=== PATIENT | male | born 1970 | race Caucasian/White ===

== ENCOUNTER 2017-03-15 07:52 | Emergency (ER) | payer BC, OTHER ==
[~2017-03-15] VITALS: Ht 172.7 cm; Wt 75.0 kg
[~2017-03-15 07:52] MED LIST: BACT800T5 PO; OXYC5 PO; TAMS0.4C67 PO; TRAZ50TA4 PO; XANA1TAB6 PO
[2017-03-15 07:54] VITALS: BP 134/86; PULSE 94; RESP 12; TEMP 98; O2SAT 100
--- NOTE | 2017-03-15 08:00 | PD ---
HPI . fell yesterday Chief Complaint: Pain: Acute or Chronic Time Seen by Provider: 08:00 Travel History International Travel<30 days: No Contact w/Intl Traveler<30days: No Traveled to known affect area: No History of Present Illness HPI 46-year-old male with a long-standing history of chronic back pain who recently had MRI and had some slipped disc versus compression here with complaints of slipping yesterday while cleaning his fish tank. Patient says he fell and he hit his back. He is now complaining of pain on the right side of his lower spine. He tells me that the pain is 9.5/10 without radiation elsewhere. He denies any bowel or bladder dysfunction. He has no saddle anesthesia. PFSH Past Medical History Blood Disorders: No Anxiety: Yes Cancer: No Cardiovascular Problems: Yes High Cholesterol: Yes Chest Pain: Yes (04/08/14) Diminished Hearing: No Endocrine: No Genitourinary: Yes (INFLAMMED PROSTATE) Immune Disorder: No Kidney Stones: Yes Musculoskeletal: Yes (BACK PROBLEMS) Neurologic: No Reproductive: Yes (GROWTH ON RIGHT TESTICLE) Respiratory: No Immunizations Current: Yes Myocardial Infarction: Yes (states that he had a small NE last year) Past Surgical History Appendectomy: Yes Social History Alcohol Use: Yes (OCC) Tobacco Use: Yes (1/2 PPD) Substance Use: No Allergies-Medications (Allergen,Severity, Reaction): Coded Allergies: No Known Allergies (Verified , 03/15/17) Reported Meds & Prescriptions Reported Meds & Active Scripts Active Reported Flexeril (Cyclobenzaprine HCl) 7.5 Mg Tab 7.5 Mg PO BID Alprazolam 1 Mg Tab 1 Mg PO BID PRN Trazodone (Trazodone HCl) 50 Mg Tab 50 Mg PO HS Flomax (Tamsulosin HCl) 0.4 Mg Cap 0.4 Mg PO HS Oxycodone (Oxycodone HCl) 10 Mg Tab 10 Mg PO TID PRN Review of Systems General / Constitutional: No: Fever Eyes: No: Visual changes HENT: No: Headaches Cardiovascular: No: Chest Pain or Discomfort Respiratory: No: Shortness of Breath Gastrointestinal: No: Abdominal Pain Genitourinary: No: Dysuria Musculoskeletal: Positive: Pain (paraspinal muscles L spine right side) Skin: No Rash Neurologic: No: Weakness Psychiatric: No: Depression Endocrine: No: Polydipsia Hematologic/Lymphatic: No: Easy Bruising Physical Exam Narrative GENERAL: AAO x 3, no acute distress, Well-nourished, well-developed patient. Appears very comfortable and in no distress SKIN: Warm and dry. No visible rashes or bruising. HEAD: Normocephalic and atraumatic. EYES: No scleral icterus. No injection or drainage. ENT: No nasal drainage noted. Mucous membranes pink. Airway patent. NECK: Supple, trachea midline. No JVD. CARDIOVASCULAR: Regular rate and rhythm without murmurs, gallops, or rubs. RESPIRATORY: Breath sounds equal bilaterally. No accessory muscle use. No rhonchi or rales. GASTROINTESTINAL: Abdomen nondistended. EXTREMITIES: No cyanosis or edema. BACK: Nontender, prior surgical scar seen. Tenderness along the right paraspinal muscles of the lower L-spine NEURO: CN II-12 intact, strength lower extremities normal PSYCH: AAO x 3, normal affect. Data Data Last Documented VS Vital Signs Date Time Temp Pulse Resp B/P Pulse Ox O2 Delivery O2 Flow Rate FiO2 03/15/17 07:54 98.0 94 12 134/86 100 MDM Medical Decision Making Medical Screen Exam Complete: Yes Emergency Medical Condition: Yes Medical Record Reviewed: Yes Differential Diagnosis acute on chronic back pain, muscle strain, less likely acute fracture Narrative Course 46-year-old male here with complaints of pain on his lower right side of his back. Pain is located in the paraspinal muscles. I did an examination and the presence of my nurse Stacey and palpated the entire spine. Patient had no tenderness or drop off sign. I did this twice. He thinks he takes flexeril, but is uncertain, but says he did not take it this morning. I'll provide him with Norflex and Toradol here in the emergency department. He is requesting another MRI to see if he has hurt his back further. I advised that MRI imaging is not emergent and he needs to have this done outpatient basis. Diagnosis Primary Impression: Chronic back pain Qualified Code: M54.5 - Chronic right-sided low back pain without sciatica Patient Instructions: General Instructions Additional Instructions: Please return to emergency department if your symptoms return or worsen. Follow up with your primary care provider. Med/Other Pt SpecificInfo: No Change to Meds Disposition: 01 DISCHARGE HOME Condition: Stable Ann Marie Gay Mar 15, 2017 08:00
[2017-03-15] MEDS ORDERED: ALPR1TAB3 PO (08:04)
[2017-03-15] MEDS ORDERED: CYCL7.5T33 PO (08:04)
[2017-03-15] MEDS ORDERED: OXYC-395 PO (08:04)
[2017-03-15] MEDS ORDERED: TAMS5CAP PO (08:04)
[2017-03-15] MEDS ORDERED: TRAZ50TA12 PO (08:04)
[2017-03-15] MEDS ORDERED: KETOROLAC TROMETHAMINE 60 MG/2 ML (IM) VIAL IM ONE (08:15)
[2017-03-15] MEDS ORDERED: ORPHENADRINE INJ 60 MG/2 ML AMP IM ONE (08:15)
== END 2017-03-15 08:47 | disposition home or self-care (01) ==
LOC: NEPK 07:52
DX: M54.9 Dorsalgia, unspecified (principal); G89.29 Other chronic pain; F41.9 Anxiety disorder, unspecified; E78.00 Pure hypercholesterolemia, unspecified; I25.2 Old myocardial infarction; F17.200 Nicotine dependence, unspecified, uncomplicated; Z79.899 Other long term (current) drug therapy
CPT/HCPCS: 96372; 99284; J1885; J2360

== ENCOUNTER 2018-01-16 06:44 | Observation (INO) | payer OTHER ==
[~2018-01-16] VITALS: Ht 170.2 cm; Wt 69.5 kg
[~2018-01-16 06:44] MED LIST changes: +ALPR1TAB3 PO; -BACT800T5 PO; +CYCL7.5T33 PO; +OXYC-395 PO; -OXYC5 PO; -TAMS0.4C67 PO; +TAMS5CAP PO; +TRAZ50TA12 PO; -TRAZ50TA4 PO; -XANA1TAB6 PO
[2018-01-16] MEDS ORDERED: HYDROmorphone HCL PF 2 MG/ML VIAL ONE (07:30)
[2018-01-16] MEDS ORDERED: ACETAMINOPHEN 1000 MG/100 ML 100 ML IV ONE (07:30)
[2018-01-16] MEDS ORDERED: POVIDONE IODINE 5% (ANTISEPSIS KIT) 4 APPLICATIONS EACH NARE PRN (07:45)
[2018-01-16] MEDS ORDERED: VANCOMYCIN 1 GM/200 ML PREMIX IV SCH (07:45)
[2018-01-16] MEDS ORDERED: ceFAZolin 2 GM PREMIX 50 ML IV SCH (07:45)
[2018-01-16] MEDS ORDERED: CHLORHEXIDINE GLUCONATE 4% SOLN 120 ML BTL TOPICAL SCH (07:45)
[2018-01-16] MEDS ORDERED: METOPROLOL TARTRATE 25 MG TAB PO PRN (07:45)
[2018-01-16] MEDS ORDERED: CHLORHEXIDINE GLUCONATE 2 % 1 PACK (2 CLOTHS) TOPICAL PRN (07:45)
[2018-01-16] MEDS ORDERED: SODIUM CHLORID 0.9% 500 ML IV PRN (07:45)
[2018-01-16] MEDS ORDERED: LACTATED RINGER'S 1000 ML IV PRN (07:45)
[2018-01-16] MEDS ORDERED: KETAMINE HCL 50 MG/5 ML SYRINGE ONE (07:53)
[2018-01-16] MEDS ORDERED: PROPOFOL 500 MG/50 ML INJ 200 ML ONE (07:54)
[2018-01-16] MEDS ORDERED: ceFAZolin INJ 1,000 MG VIAL ONE (08:02)
[2018-01-16] MEDS ORDERED: GENTAMICIN SULFATE 80 MG/2 ML VIAL ONE (08:02)
[2018-01-16] MEDS ORDERED: BUPIVACAINE/EPINEPHRINE 0.5% PF 30 ML VIAL ONE (08:20)
[2018-01-16] MEDS ORDERED: Post-op Orders (for Pharmacy) XX ONE (10:30)
[2018-01-16] MEDS ORDERED: BISACODYL 10 MG SUPP RECTAL PRN (10:30)
[2018-01-16] MEDS ORDERED: oxyCODONE/ACETAMINOPHEN 10 MG/325 MG TAB PO PRN (10:30)
[2018-01-16] MEDS ORDERED: ONDANSETRON ODT 4 MG TAB PO PRN (10:45)
[2018-01-16] MEDS ORDERED: ceFAZolin INJ 1,000 MG VIAL IV ONE ×2 (10:53→12:00)
[2018-01-16] MEDS ORDERED: PHENYLEPH/NS 1000 MCG/10 ML SYR IV ONE (12:00)
[2018-01-16] MEDS ORDERED: PROPOFOL 200 MG/20 ML AMP IV ONE (12:00)
[2018-01-16] MEDS ORDERED: PHENYLEPHRINE HCL 10 MG/ML VIAL IV ONE (12:00)
[2018-01-16] MEDS ORDERED: ROCURONIUM INJ 50 MG/5 ML SYRINGE IV PUSH ONE (12:00)
[2018-01-16] MEDS ORDERED: NORMOSOL R INJ 2,000 ML IV ONE (12:00)
[2018-01-16] MEDS ORDERED: ONDANSETRON HCL 4 MG/2 ML VIAL IV ONE (12:00)
[2018-01-16] MEDS ORDERED: LIDOCAINE HCL 1% PF 5 ML SYRINGE OTHER ONE (12:00)
[2018-01-16] MEDS ORDERED: LACTATED RINGER'S 1000 ML INJ 1,000 ML IV ONE (12:00)
[2018-01-16] MEDS ORDERED: SUCCINYLCHOLINE CHLORIDE 100 MG/5 ML SYRINGE IV PUSH ONE (12:00)
[2018-01-16] MEDS ORDERED: DEXAMETHASONE SOD PHOS 4 MG/ML VIAL IV ONE (12:00)
--- NOTE | 2018-01-16 12:10 | PD.OP ---
cc: Cyrus Cm MD; Chester Cm MD Operative Report Date of Surgery: Jan 16, 2018 Preoperative Diagnosis: Osteophyte disc complex/herniated nucleus pulposus C5-6, C6-7. Cervical spinal stenosis. Right greater than left cervical radiculopathy Postoperative Diagnosis: Same Procedure: Anterior cervical discectomy decompression with bilateral foraminotomies, C5-6. Anterior cervical discectomy decompression and bilateral foraminotomies, C6-7. Left anterior iliac crest bone graft Anesthesia: General Surgeon: Chester Cm Geriatric Physician(s): YARELI Gibbs Operation and Findings: EBL: 50 cc INDICATIONS: This patient is a 47-year-old male with significant neck and arm pain. Investigative studies shows evidence of osteophyte disc complexes with a soft disc herniation at C5-6 and C6-7. At C3-4 there is some evidence of a central osteophyte disc complex. The patient presents with right greater than left arm pain with weakness. Investigative studies are consistent with the same. He now presents for surgical treatment. NOTE: Patricia Gibbs PA-C was present for the entire surgical procedure as my first aid attendant. In my medical opinion her skill and care was necessary for proper management of this patient PROCEDURE: The patient was brought to the operating room and anesthetized in the supine position. This patient was positioned supine on the radiolucent table. All pressure points were protected in the anterior cervical spine and iliac crest was scrubbed with alcohol followed by Hibiclens followed by ChloraPrep. A timeout was done and antibiotics were given within 1 hour time window. Lateral radiographic images were used identifying the proper level. A right anterior incision was made in line with skin creases. The platysma was opened in line with the incision. Deep dissection continued in the interval between the carotid sheath and the esophagus. The longus-coli muscles were lifted on both sides and retractors were positioned allowing good exposure. Lateral radiographic images were used to identify the proper level. [place] style interosseous pins were placed at C5 and C6 allowing exposure to that level. The microscope was rolled into the field. A total discectomy was accomplished and posterior osteophytes were removed. The posterior longitudinal ligament and annulus was taken down. Bilateral foraminotomies were accomplished. The endplates were squared up anticipating later bone grafting. A blunt probe could be placed out each foramen without evidence of nerve root compromise. The C5 pin was placed down to C7. An anterior exposure was accomplished. We performed a total discectomy with excision of the posterior annulus and posterior longitudinal ligament. Bilateral foraminotomies were accomplished. Osteophytes were removed. The endplates were squared up anticipating later bone grafting. A blunt probe could be placed out each foramen without evidence of nerve root compromise. The left iliac crest was approached. A small stab incision was made allowing percutaneous access to the anterior iliac crest. Multiple cores of cancellous bone were harvested and taken to the back table to be used for later bone grafting. The wound was irrigated anesthetized and closed with 4-0 Vicryl followed by Dermabond. The case was turned over to Dr. Cyrus Cm for fusion and instrumentation per his dictation. FINDINGS: There was evidence of soft disc herniation extending into the foramen both levels at C5-6 and C6-7 with evidence of a combination of osteophyte and soft disc component centrally at both levels. There was a moderate to high- grade central stenosis with significant foraminal stenosis. Final decompression was felt to be very satisfactory. There was no complication that was identified NOTE: This surgery was performed in 2 parts. The first part was the neurosurgical decompression performed under the variable power stereo microscope by the undersigned in addition to the bone graft. The second portion of the surgery will be performed by the orthopedic spine component by co -surgeon, Dr. Cyrus Cm for the anterior fusion with interbody cage and anterior plate. The skill of 2 surgeons was necessary to perform distinct separate procedural services as dictated above and dictated in the following operative note by Dr. Cyrus Cm. Chester Cm MD Jan 16, 2018 12:10
[2018-01-16] MEDS ORDERED: OXYC1TAB36 PO (12:15)
[2018-01-16] MEDS ORDERED: NALOXONE HCL 0.4 MG/ML AMP ONE (13:06)
[2018-01-16] MEDS ORDERED: MIDAZOLAM HCL 2 MG/2 ML VIAL ONE (13:33)
[2018-01-16] MEDS ORDERED: CYCLOBENZAPRINE HCL 10 MG TAB PO PRN (13:45)
--- NOTE | 2018-01-16 13:50 | MP ---
cc: Cyrus Cm MD, Gregory DATE OF OPERATION: PREOPERATIVE DIAGNOSES: C5-C6, C6-C7 herniated nucleus pulposus, osteophyte disk complex, spinal cord compression. POSTOPERATIVE DIAGNOSES: C5-C6, C6-C7 herniated nucleus pulposus, osteophyte disk complex, spinal cord compression. PROCEDURE PERFORMED: C5-C6 and C6-C7 interbody fusion, C6-C7 SpineNet ACC anterior cervical cage, C5-C7 anterior spinal instrumentation of SpineNet rhausler. SURGEON: Cyrus Cm MD CREDIT COLLECTIONS SPECIALIST: Staff. ESTIMATED BLOOD LOSS: See chart. COMPLICATIONS: None. SPECIMEN: None. DRAIN: One. PROCEDURE: The patient was brought to the operating room and had satisfactory anesthesia by the Department of Anesthesia. Dr. Chester Cm performed right anterior cervical spine exposure. He provided anterior cervical discectomy and decompression, C5-C6, C6-C7 using operative microscope and left anterior crest bone grafting. I was not present for his portion of the procedure. The endplates at C6-C7 and C5-C6 were prepared for fusion. Hyalin cartilage endplate was removed. A 6, 10 x 12 ACC cage placed in the interspace at C6-C7. Anterior iliac crest bone grafting under fluoroscopic guidance for interbody fusion. At C5-6 patient had a 7, 10 x 12 ACC cage placed in interspace. Anterior iliac crest bone graft under fluoroscopic guidance for interbody fusion. Anterior osteophytes were removed using multiple different types of rongeurs, curettes, and burs. A 49 mm SpineNet rhausler plate was contoured for appropriate cervical lordosis. Two pins were used to keep the plate in appropriate position, which was confirmed by AP and lateral fluoroscopy. Two screws were used in the vertebral body of C5, C6, and C7. Each of the screws were 14 mm length, 4.0 mm in outer diameter fixed angle screws. Each were drilled. Each screw had appropriately locked to the plate. The wound was irrigated copiously. The wound itself was dry. The wound was closed over a 10-[place] Radu drain. The wound was closed in a routine manner using multiple interrupted 3-0 Vicryl suture, skin was approximated with running subcuticular 4-0 Vicryl suture. Dermabond was placed on the skin. Sterile dressing applied. The patient was placed in a [place] cervical orthosis. The patient tolerated the procedure well and arrived in the recovery room in stable and satisfactory condition. Cyrus Cm MD AWG/TL , 01:08 PM , 01:49 PM
[2018-01-16] MEDS: LACTATED RINGER'S 1000 ML INJ 1,000 ML IV SCH ×2 (14:00→19:36)
[2018-01-16] MEDS ORDERED: DO NOT ADM ANY ANTICOAGULANT DRUGS PRN (14:00)
[2018-01-16] MEDS ORDERED: *morphine SULFATE 4 MG/ML PERIprocedure ONLY ONE (14:33)
[2018-01-16] MEDS ORDERED: *MEPERIDINE 25 MG INJ VIAL PERIprocedural Use ONLY ONE (15:07)
[2018-01-16] MEDS: oxyCODONE/ACETAMINOPHEN 10 MG/325 MG TAB PO PRN ×2 (16:21→21:18)
[2018-01-16 17:00] VITALS: BP 150/90; PULSE 68; RESP 16; TEMP 99; O2SAT 96
--- NOTE | 2018-01-16 18:10 | RADRPT ---
EXAM DATE: 01/16/2018 5:03 PM EDT AGE/SEX: 47 years / Male INDICATIONS: C 5-6 6-7 fusion. CLINICAL DATA: This is the patient's initial encounter. Patient reports that signs and symptoms have been present for 1 day and indicates a pain score of Nonresponsive. MEDICAL/SURGICAL HISTORY: Non-responsive. Non-responsive. COMPARISON: No prior exams available for comparison. FINDINGS: Fluoroscopic images demonstrates fusion C5-C7 with intervertebral disc devices. Anterior plate and sc rews are intact. CONCLUSION: Postsurgical images as described above. Electronically signed by: Berry Haprer MD 01/16/2018 6:08 PM EDT
[2018-01-16] MEDS: MORPHINE SULFATE 4 MG/ML INJ IV PUSH PRN ×2 (19:35→22:52)
[2018-01-16 20:00] VITALS: BP 131/81; PULSE 113; RESP 16; TEMP 98; O2SAT 96
[2018-01-16] MEDS ORDERED: TAMSULOSIN HCL 0.4 MG CAP PO SCH (21:00)
[2018-01-16] MEDS ORDERED: traZODone HCL 50 MG TAB PO SCH (21:00)
[2018-01-16] MEDS: ALPRAZolam 1 MG TAB PO PRN (21:19)
--- NOTE | 2018-01-16 21:51 | HHI.DCPOC ---
Discharge Care Plan Diagnosis: (1) Cervical spinal stenosis (2) Cervical radicular pain Your Health Problems Are: Incision/Drains Inflammation Swelling Difficulty to Swallow Goals to Promote Your Health * To prevent worsening of your condition and complications * To maintain your health at the optimal level Directions to Meet Your Goals Take your medications as prescribed Follow your dietary instruction Follow activity as directed Keep your appointments as scheduled Take your immunizations and boosters as scheduled If your symptoms worsen call your PCP, if no PCP go to Urgent Care Center or Emergency Room Smoking is Dangerous to Your Health. Avoid second hand smoke Call the 24-hour hour crisis hotline for domestic abuse at Adrianna England Jan 16, 2018 21:51
--- NOTE | 2018-01-16 22:03 | HHI.DS ---
Discharge Summary Admission Date Jan 16, 2018 at 10:21 Discharge Date: Jan 17, 2018 Admitting Diagnosis see below Diagnosis: (1) Cervical spinal stenosis Diagnosis: Principal ICD Codes: M48.02 - Spinal stenosis, cervical region (2) Cervical radicular pain Diagnosis: Principal ICD Codes: M54.12 - Radiculopathy, cervical region Procedures ACDF C56, C67, bone graft. Brief History This is a 47 year old male patient with increasing neck and right arm pain for 3 months. He began struggling with sleeping at night and driving. He was taking narcotic pain medications for other problems at the time. He was given a medrol dose med[place] with limited relief. He tried OTC nonsteroidal medications. He was prescribed physical therapy but did not pursue this aggressively as his pain was increasing. Imaging studies were performed showing advanced cervical stenosis at C56 and C67. He did not want to pursue epidural steroid injections. He eventually elected to move forward with anterior cervical decompression and fusion C56C67 and now presents for the above. Hospital Course Surgical treatment was performed on the day of admission without complication. He recovered well in PACU and was transferred to the orthopaedic floor. Pain was controlled with IV and oral medications. He was compliant with all restrictions including use of his cervical brace. Drain was removed. After 1 day he was found to be stable and discharged home. 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 He was on Percocet prior to surgery so he was given a one time prescription for Percocet 10/325mg. Pt Condition on Discharge: Stable Discharge Disposition: Discharge Home Discharge Instructions Diet Instructions: As Tolerated, No Restrictions, Soft Diet, High Fiber Diet Additional Diet Instructions: Soft diet for 72 hours Activities You Can Perform: See Additionl Instruction Additional Activity Instruc.: Cervical brace full-time New Medications: Oxycodone HCl/Acetaminophen (Oxycodone-Acetaminophen 10-325) 10 Mg-325 Mg Tablet 1 TAB PO Q4H PRN for pain, #42 TAB Continued Medications: Alprazolam (Alprazolam) 1 Mg Tab 1 MG PO BID PRN for ANXIETY, TAB 0 Refills Cyclobenzaprine (Flexeril) 7.5 Mg Tab 7.5 MG PO PRN for Muscle Spasm, #90 TAB 0 Refills Oxycodone (Oxycodone) 10 Mg Tab 10 MG PO QID PRN for PAIN, TAB 0 Refills Tamsulosin (Flomax) 0.4 Mg Cap 0.4 MG PO HS for Manage Prostate Problems, #30 CAP 0 Refills Trazodone (Trazodone) 50 Mg Tab 50 MG PO HS for Control Depression, #30 TAB 0 Refills Adrianna England Jan 16, 2018 22:03
[2018-01-17] VITALS: BP 123/72; PULSE 87; RESP 17; TEMP 98.4; O2SAT 95
[2018-01-17] MEDS: oxyCODONE/ACETAMINOPHEN 10 MG/325 MG TAB PO PRN ×3 (01:17→09:29)
[2018-01-17] MEDS: LACTATED RINGER'S 1000 ML INJ 1,000 ML IV SCH (02:28)
[2018-01-17 04:00] VITALS: BP 133/76; PULSE 81; RESP 16; TEMP 97.4; O2SAT 98
[2018-01-17] MEDS ORDERED: CYCLOBENZAPRINE HCL 10 MG TAB PO PRN (07:30)
--- NOTE | 2018-01-17 07:34 | PD.ORT.PN ---
Subjective Subjective Remarks Neck pain. Some throat soreness. Believes his arm/shoulder may be a little better. No other complaints. Questions about surgery. No new CP or SOB. Objective Vitals Vital Signs Date Time Temp Pulse Resp B/P (MAP) Pulse Ox O2 Delivery O2 Flow Rate FiO2 01/17/18 04:00 97.4 81 16 133/76 (95) 98 01/17/18 00:00 98.4 87 17 123/72 (89) 95 01/16/18 20:00 98.0 113 16 131/81 (98) 96 01/16/18 17:00 99.0 68 16 150/90 (110) 96 01/16/18 15:55 63 20 127/77 (94) 100 Nasal Cannula 3 01/16/18 15:45 63 20 127/77 (94) 100 Nasal Cannula 3 01/16/18 15:30 60 20 131/85 (100) 100 Nasal Cannula 3 01/16/18 15:15 75 20 128/78 (95) 100 Nasal Cannula 3 01/16/18 15:00 70 20 131/85 (100) 95 Nasal Cannula 3 01/16/18 14:45 70 20 125/78 (94) 99 Nasal Cannula 3 01/16/18 14:30 74 20 127/82 (97) 99 Nasal Cannula 3 01/16/18 14:15 74 20 127/82 (97) 99 Nasal Cannula 3 01/16/18 14:00 80 20 121/78 (92) 98 Nasal Cannula 3 01/16/18 13:45 79 20 113/68 (83) 99 Nasal Cannula 3 01/16/18 13:23 98.0 80 18 92/52 (65) 97 Nasal Cannula 3 01/16/18 07:31 97.9 68 15 121/75 (90) 98 I/O 01/16/18 01/16/18 01/16/18 01/17/18 01/17/18 01/17/18 07:00 15:00 23:00 07:00 15:00 23:00 Intake Total 2200 ml 1200 ml Output Total 100 ml 885 ml 2425 ml Balance 2100 ml -885 ml -1225 ml Intake Oral 1200 ml Other 2200 ml Output Urine Total 850 ml 2425 ml Drainage Total 35 ml Estimated Blood Loss 100 ml # Voids 1 3 Procedures ACDF C56, C67, bone graft. Objective Remarks Sitting up in bed Cervical brace in place NAD VSS C/S Dressing c/d/i, drain in place, no erythema, very mild swelling +motor brachiorad, +sens, +nvi trust and estates attorney intact bilaterally, neg homans distal Assessment & Plan Ortho Post Op Day #: 1 Problem List: (1) Cervical spinal stenosis ICD Codes: M48.02 - Spinal stenosis, cervical region (2) Cervical radicular pain ICD Codes: M54.12 - Radiculopathy, cervical region Assessment and Plan pod#1 s/p ACDF C56 C67 Ortho stable. Some neck discomfort. Pt was on chronic pain medications prior to surgery. Will give pt one time script for Percocet 10/325mg q4h if cleared by pain management. D/C cervical drain. Dry dressing changes daily. 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 Was educated to avoid driving for 4 weeks while in collar. Soft diet for 48 hours. D/C home today. F/U in 2 weeks as scheduled. Adrianna England Jan 17, 2018 07:34
[2018-01-17] MEDS ORDERED: MULTIVITAMINS/MINERALS THERAPEUTIC TAB PO SCH (09:00)
[2018-01-17] MEDS ORDERED: DOCUSATE SODIUM 100 MG CAP PO SCH (09:00)
[2018-01-17] MEDS: ALPRAZolam 1 MG TAB PO PRN (09:30)
== END 2018-01-17 10:55 | disposition home or self-care (01) ==
LOC: HSDC 06:44 → HSDI 10:21 → N06B 16:06
PROVIDERS: ADMIT Orthopaedic Surgery Orthopaedic Surgery of the Spine; ATTEND Orthopaedic Surgery Orthopaedic Surgery of the Spine
DX: M50.122 Cervical disc disorder at C5-C6 level with radiculopathy (principal); M50.123 Cervical disc disorder at C6-C7 level with radiculopathy; M48.02 Spinal stenosis, cervical region; G95.20 Unspecified cord compression
CPT/HCPCS: 00600; 20937; 22551; 22552; 22845; 22853; 72040; 96361; 96365; 96375; 96376; C1713; G0378; J0131; J0330; J0690; J1100; J1170; J1580; J2175; J2250; J2270; J2310; J2370; J2405; J3010; J3370; J7120; L0150